=== PATIENT | male | born 1980 | race Caucasian/White ===

== ENCOUNTER 2024-04-09 11:07 | Inpatient (IN) | payer BC, OTHER ==
[~2024-04-09] VITALS: Ht 172.7 cm; Wt 97.1 kg
[2024-04-09] MEDS: ONDANSETRON HCL 4 MG/2 ML VIAL IV ONE (11:30)
[2024-04-09] MEDS: KETOROLAC TROMETH 30 MG/ML 1ML VIAL IV ONE (11:30)
--- NOTE | 2024-04-09 11:50 | ED.PDOC ---
GI ASSESSMENT HPI Comments 44y M who presents to the ED for chief complaint of constipation. Pt states he has been having diffuse abdominal pain radiating to the bilateral flank region since 0830 this AM. Pt states the pain is constant, sharp in nature, rating the pain 10/10, with no associated exacerbating or relieving factors. Pt has associated nausea and some light dysuria but otherwise denies vomiting,diarrhea, fever, cough, chills, hematemesis, headache or dizziness. Pt otherwise denies any other symptoms at this time. Chief Complaint: Constipation Time Seen by MD: 11:42 Reviewed Notes: Nurses Notes, Medications, Allergies Information Source: Patient, Spouse Mode of Arrival: Ambulatory Brought in by: spouse Timing: Hours Duration: Since onset Prehospital treatment: None Quality: Sharp Vomitus: None Stool: Normal Severity: Moderate Recent: None Recent Hx of: None Pain Location: Diffuse Modifying Factors: Exertion Associated sign and symptoms: Nausea, Abdominal Pain Past Medical History PAST MEDICAL HISTORY: High Lipids Surgical History: Denies all surgeries Family History Family History: Family hx of Cancer Social History Smoker: Non-Smoker Alcohol: Denies ETOH Use Drugs: Denies Drug Use Lives In: Home Constitutional: denies: chills, diaphoresis, fatigue, fever, malaise, sweats, weakness, others EENTM: denies: blurred vision, double vision, ear bleeding, ear discharge, ear drainage, ear pain, ear ringing, eye pain, eye redness, hearing loss, mouth pain, mouth swelling, nasal discharge, nose bleeding, nose congestion, nose pain, photophobia, tearing, throat pain, throat swelling, voice changes, others Respiratory: denies: cough, hemoptysis, orthopnea, SOB at rest, shortness of breath, SOB with excertion, stridor, wheezing, others Cardiovascular: denies: chest pain, dizzy spells, diaphoresis, Dyspnea on exertion, edema, irregular heart beat, left arm pain, lightheadedness, palpitations, PND, syncope, others Gastrointestinal: reports: abdominal pain, nausea; denies: abdomen distended, blood streaked bowels, constipated, diarrhea, dysphagia, difficulty swallowing, hematemesis, melena, poor appetite, poor fluid intake, rectal bleeding, rectal pain, vomiting, others Genitourinary: reports: flank pain; denies: burning, dysuria, frequency, hematuria, incontinence, penile discharge, penile sore, pain, testicle pain, testicle swelling, urgency, others Neurological: denies: dizziness, fainting, headache, left sided numbness, left sided weakness, numbness, paresthesia, pre-existing deficit, right sided numbness, right sided weakness, seizure, speech problems, tingling, tremors, weakness, others Musculoskeletal: denies: back pain, gout, joint pain, joint swelling, muscle pain, muscle stiffness, neck pain, others Integumetry: denies: bruises, change in color, change in hair/nails, dryness, laceration, lesions, lumps, rash, wounds, others Allergic/Immunocompromised: denies: Difficulty Healing, Frequent Infections, Hives, Itching, others Hematologic/Lymphatic: denies: anemia, blood clots, easy bleeding, easy bruising, swollen glands, others Endocrine: denies: excessive hunger, excessive sweating, excessive thirst, excessive urination, flushing, intolerance to cold, intolerance to heat, unexplained weight gain, unexplained weight loss, others Psychiatric: denies: anxiety, bipolar disorder, depression, hopeless, panic disorder, schizophrenia, sleepless, suicidal, others All Other Systems: Reviewed and Negative Physical Exam General Appearance: Moderate Distress HEENT: Normal ENT Inspection, Pharynx Normal, TMs Normal Neck: Full Range of Motion, Non-Tender, Normal, Normal Inspection Respiratory: Chest Non-Tender, Lungs Clear, No Accessory Muscle Use, No Respiratory Distress, Normal Breath Sounds Cardiovascular: No Edema, No JVD, No Murmur, No Gallop, Normal Peripheral Pulses, Regular Rate/Rhythm Breast Exam: Deferred Gastrointestinal: Diffuse, No Organomegaly, No Pulsatile Mass, Normal Bowel Sounds, Soft, Tenderness Genitalia: Deferred Pelvic: Deferred Rectal: Deferred Extremities: No calf tenderness, Normal capillary refill, Normal inspection, Normal range of motion, Non-tender, No pedal edema Musculoskeletal : Apperance: Normal Neurologic: Alert, credit professional II-XII nml as Tested, Motor Weakness, Normal Affect, Normal Mood, No Sensory Deficits Cerebellar Function: Normal Reflexes: Normal Skin: Dry, Normal Color, Warm Lymphatic: No Adenopathy Was a procedure done? Was a procedure done?: No GI differential Dx Differential Diagnosis: Constipation, Gastritis/PUD, Gastroenteritis, Pancreatitis, Urolithiasis, Dehydration, Stress Ulcer, Kidney Stone X-Ray, Labs, Meds, VS Vital Signs Date Time Temp Pulse Resp B/P (MAP) Pulse Ox O2 Delivery O2 Flow Rate FiO2 04/09/24 11:54 73 20 100 04/09/24 11:54 98.7 73 20 150/81 (104) 100 98.7 04/09/24 11:16 98.7 82 18 153/80 (104) 98 Lab Test 04/09/24 11:39 04/09/24 11:23 Range/Units White Blood Count 11.9 H 4.4-10.8 10^3/uL Red Blood Count 4.82 4.5-5.90 10^6/uL Hemoglobin 14.8 13.5-17.5 g/dL Hematocrit 42.9 41.0-53.0 % Mean Corpuscular Volume 89.2 80.0-100.0 fL Mean Corpuscular Hemoglobin 30.8 28.0-32.0 pg Mean Corpuscular Hemoglobin Concent 34.6 32.0-36.0 g/dL Red Cell Distribution Width 12.8 11.8-14.3 % Platelet Count 222 140-450 10^3/uL Mean Platelet Volume 8.2 6.9-10.8 fL Neutrophils (%) (Auto) 87.1 H 37.0-80.0 % Lymphocytes (%) (Auto) 7.8 L 10.0-50.0 % Monocytes (%) (Auto) 3.9 0.0-12.0 % Eosinophils (%) (Auto) 0.2 0.0-7.0 % Basophils (%) (Auto) 1.0 0.0-2.0 % Neutrophils # (Auto) 10.4 H 1.6-8.6 10 ^3/uL Lymphocytes # (Auto) 0.9 0.4-5.4 10 ^3/uL Monocytes # (Auto) 0.5 0-1.3 10 ^3/uL Eosinophils # (Auto) 0 0-0.8 10 ^3/uL Basophils # (Auto) 0.1 0-0.2 10 ^3/uL Nucleated Red Blood Cells 0.0 % Sodium Level 144 136-145 mmol/L Potassium Level 3.3 L 3.5-5.1 mmol/L Chloride Level 106 98-107 mmol/L Carbon Dioxide Level 25 20-31 mmol/L Anion Gap 13 5-15 Blood Urea Nitrogen 15 9-23 mg/dL Creatinine 1.14 0.700-1.30 mg/dL Glomerular Filtration Rate Calc 80 >90 mL/min BUN/Creatinine Ratio 13.2 10.0-20.0 Serum Glucose 125 H 74-106 mg/dL Calcium Level 10.5 H 8.7-10.4 mg/dL Total Bilirubin 0.8 0.2-1.0 mg/dL Aspartate Amino Transferase (AST) 25 13-40 U/L Alanine Aminotransferase (ALT) 44 H 7-40 U/L Alkaline Phosphatase 97 46-116 U/L Total Protein 7.2 5.7-8.2 g/dL Albumin 4.7 3.2-4.8 g/dL Lipase 34 12-53 U/L Urine Color Yellow Yellow Urine Clarity Turbid H Clear Urine pH 5.5 5.0-9.0 Urine Specific [place] 1.021 1.001-1.035 Urine Protein 1+ H Negative Urine Ketones Negative Negative Urine Blood 3+ H Negative /uL Urine Nitrite Negative Negative Urine Bilirubin Negative Negative Urine Urobilinogen Normal Negative mg/dL Urine Leukocyte Esterase Negative Negative /uL Urine RBC 1122 0 - 3 /hpf Urine WBC 6 0 - 3 /hpf Urine Squamous Epithelial Cells Few <5 /hpf Urine Bacteria Few H None Seen /hpf Urine Glucose Normal Normal mg/dL Current Medications Medications (Trade) Dose Ordered Sig/Ofelia Route Start Time Stop Time Status Last Admin Ondansetron HCl (Zofran) 4 mg ONCE ONCE IV 04/09/24 11:30 04/09/24 11:31 DC 04/09/24 11:30 Sodium Chloride 500 ml @ 500 mls/hr Q1H ONCE IVB 04/09/24 11:30 04/09/24 12:29 DC 04/09/24 11:52 Ketorolac Tromethamine (Toradol Injection) 30 mg ONCE ONCE IV 04/09/24 11:30 04/09/24 11:31 DC 04/09/24 11:30 PROCEDURE(s): ABPL - CT AB PEL WO CON-NO ORAL OR IV IMPRESSION: 1. Mildly obstructing distal left ureteral calculus measuring up to 2 mm associated with mild left hydronephrosis and hydroureter. Small amount of perinephric fluid on the left. Urology evaluation is recommended. Fat containing periumbilical hernia. At this time, the patient had an IV Hep-Lock The patient was given Toradol 30 mg IV push The patient was given normal saline at a 500 cc bolus The patient was also given Zofran 4 mg IV push for the nausea At this time, the patient is being admitted to the hospitalist. Images Reviewed?: Images reviewed and evaluated by me Time of 1ST Reevaluation: 12:15 Reevaluation 1ST: Unchanged Patient Education/Counseling: Diagnosis, Treatment, Prognosis Family Education/Counseling: Diagnosis, Treatment, Prognosis Additional Information - I reviewed the following notes from patient's past medical encounters: - The following tests were ordered, and results were reviewed by me: CBC, CMP, lipase, UA, CT Abdomen and pelvis, IV fluids, - Additional information was gathered from interviewing the following independent Historian: none - I reviewed and agreed with the following test results read by other provider: radiologist - I discussed treatments and results with medical personnel and: spouse Departure 1 Departure Time of Disposition: 14:22 Impression: Primary Impression: Intractable abdominal pain Additional Impression: Left ureteral stone Disposition: ADMITTED INPATIENT Admit to: Med Surg Condition: Fair Critical Care Note Critical Care Time?: No Stability Stability form required: Yes Unstable for transfer: ED Physician Assesment (Clinical assesment) Heart Score Heart Score: Heart Score Response (Comments) Value History N/A 0 EKG N/A 0 Age N/A 0 Risk Factors N/A 0 Troponin N/A 0 Total 0 I personally scribed for HAYLEY CHACON MD ([email or web address]) on 04/09/24 at 11:50. Electronically submitted by Jen Sandoval ([email or web address]). I personally scribed for HAYLEY CHACON MD ([email or web address]) on 04/09/24 at 12:06. Electronically submitted by Jen LESLIE). HAYLEY CHACON MD Apr 09, 2024 11:50
[2024-04-09] MEDS: SODIUM CHLORIDE 0.9% 500 ML IVB ONE (11:52)
[2024-04-09 11:54] VITALS: BP 150/81; PULSE 73; RESP 20; TEMP 98.7; O2SAT 100
--- NOTE | 2024-04-09 11:55 | DVH ---
Exam: CT CT AB PEL WO CON-NO ORAL OR IV History: pain Comparison Study: None Technique: Multidetector spiral CT of the abdomen and pelvis was performed from lung bases to pubic symphysis. Imaging was performed without IV contrast. Axial, coronal and sagittal multiplanar reform ats were obtained from the axial data set by the technologist. Radiation dose : Abdomen/Pelvis: CTDIvol 14 mGy, DLP 799 mGy*cm. Findings: Evaluation of solid organs is limited due to lack of intravenous contrast use. Lung Bases: No acute or significant lung base finding. Normal heart size. No pleural or pericardial effusion. Liver: The liver is normal in size. No focal lesions. Gallbladder and biliary Tree: Unremarkable Spleen: Unremarkable Pancreas: The pancreas is grossly normal in appearance. Adrenal Glands: Unremarkable Kidneys: Small amount of perinephric fluid on the left. Mild left hydronephrosis and hydroureter. Dis jamar left ureteral calculus measuring up to 2 mm. Right kidney appears unremarkable. Bladder: Grossly unremarkable for degree of distention. Bowel: The stomach is grossly normal in appearance. Small bowel and colon are normal in caliber and d istribution. The appendix is not visualized; however, no secondary findings of acute appendicitis id entified. Ascites: Absent Lymphadenopathy: No mesenteric, retroperitoneal or periportal lymphadenopathy. Abdominal wall and Mesentery: Fat containing periumbilical hernia. Vasculature: The visualized abdominal aorta is normal in size and caliber. Evaluation of abdominal a nd pelvic vessels is limited due to lack of intravenous contrast. Pelvic Organs: Unremarkable Musculoskeletal: Grade 1 retrolisthesis of L2 on L3. IMPRESSION: 1. Mildly obstructing distal left ureteral calculus measuring up to 2 mm associated with mild left hy dronephrosis and hydroureter. Small amount of perinephric fluid on the left. Urology evaluation is re commended. Fat containing periumbilical hernia. Radiation optimization: All CT scans at this facility use at least one of these dose optimization monica hniques: Automated exposure control mA and/or kV adjustment per patient size (includes targeted exams where dose is matched to clinical indication) or iterative reconstruction. HS:Y
[2024-04-09 12:00] LABS: Basophils # (auto) 0.1 10 ^3/uL (0-0.2); Eosinophils # (auto) 0 10 ^3/uL (0-0.8); Eosinophils % (auto) 0.2 % (0.0-7.0); Hematocrit 42.9 % (41.0-53.0); Hemoglobin 14.8 g/dL (13.5-17.5); Lymphocytes # (auto) 0.9 10 ^3/uL (0.4-5.4); Lymphocytes % (auto) 7.8 % (10.0-50.0); Mean Corpuscular Hemoglobin 30.8 pg (28.0-32.0); Mean Corpuscular Hgb Conc. 34.6 g/dL (32.0-36.0); Mean Corpuscular Volume 89.2 fL (80.0-100.0); Monocytes # (auto) 0.5 10 ^3/uL (0-1.3); Monocytes % (auto) 3.9 % (0.0-12.0); Neutrophils # (auto) 10.4 10 ^3/uL (1.6-8.6); Neutrophils % (auto) 87.1 % (37.0-80.0); Platelet Count (auto) 222 10^3/uL (140-450); Red Blood Cells 4.82 10^6/uL (4.5-5.90); Red Cell Distribution Width 12.8 % (11.8-14.3); White Blood Cell 11.9 10^3/uL (4.4-10.8)
[2024-04-09 12:15] LABS: Alkaline Phosphatase 97 U/L (46-116); Anion Gap 13 (5-15); Aspartate Aminotransferase 25 U/L (13-40); Carbon Dioxide 25 mmol/L (20-31); Chloride 106 mmol/L (98-107); Lipase 34 U/L (12-53); Sodium 144 mmol/L (136-145)
[2024-04-09 12:16] LABS: Albumin 4.7 g/dL (3.2-4.8); BUN/Creatinine Ratio 13.2 (10.0-20.0); Bilirubin, Total 0.8 mg/dL (0.2-1.0); Blood Urea Nitrogen 15 mg/dL (9-23); Total Protein 7.2 g/dL (5.7-8.2)
[2024-04-09 12:23] LABS: Alanine Aminotransferase 44 U/L (7-40); Calcium 10.5 mg/dL (8.7-10.4); Glucose 125 mg/dL (74-106); Potassium 3.3 mmol/L (3.5-5.1)
[2024-04-09 13:37] LABS: Urine Bacteria FEW /hpf (None Seen); Urine Blood 3+ /uL (Negative); Urine Clarity Turbid (Clear); Urine Protein, UAD 1+ (Negative); Urine Specific Gravity 1.021 (1.001-1.035); Urine Urobilinogen Normal (Negative); Urine WBC 6 /hpf (0 - 3); Urine pH 5.5 (5.0-9.0)
[2024-04-09 13:47] LABS: Urine Color Yellow (Yellow)
[2024-04-09] MEDS ORDERED: ATOR10TA52 PO (14:29)
[2024-04-09] MEDS ORDERED: MORPHINE SULFATE INJ 2 MG/ml SYRG IV PRN (14:30)
[2024-04-09] MEDS ORDERED: DOCUSATE SOD 100 MG CAP PO PRN (14:30)
[2024-04-09] MEDS ORDERED: POTASSIUM EFFERVESENT TAB 25 MEQ PO ONE (14:30)
[2024-04-09] MEDS ORDERED: ONDANSETRON HCL 4 MG/2 ML VIAL IV PRN (14:30)
[2024-04-09] MEDS ORDERED: ACETAMINOPHEN 325 MG TAB PO PRN (14:30)
[2024-04-09] MEDS ORDERED: HYDROcodone-ACET 5/325MG TAB PO PRN (14:30)
[2024-04-09] MEDS ORDERED: cefTRIAXone 1GM/50ML D5W 50 ML IV ONE (14:30)
[2024-04-09] MEDS ORDERED: SODIUM CHLORIDE 0.9% 1,000 ML IV SCH (14:30)
--- NOTE | 2024-04-09 14:57 | DVHHP2 ---
History of Present Illness Reason for Visit: flank pain History of Present Illness Shaquille Graves is a 44YO M with pmHx of HLD who presents to the ED with bilateral flank pain x 1 day. Patient reports that it happened this morning while he was having a bowel movement he felt sharp pain in his abdomen which radiated to both flanks. He reported the pain as a 10/10 currently pain is 0/10 after the pain medication that was given in ER. Patient also reports that there was some nausea and vomiting x1. He reports that this has not happened before. Patient reports that he is compliant with his medication. Patient denies fever, chills, chest pain, shortness of breath, diarrhea, lightheadedness, and dizz iness. Cardiovascular: hyperipidemia Past Surgical History: None Family History: Cancer (mom breast CA) Smoke: No ALCOHOL: none Drugs: None Lives: with Family Domestic Violence: Neg Review of Systems Constitutional: No: Fever, Chills, Sweats, Weakness, Malaise, Other Eyes: No: Pain, Vision change, Conjunctivae inflammation, Eyelid inflammation, Other, Redness ENT: No: Ear pain, Ear discharge, Nose pain, Nose discharge, Nose congestion, Mouth pain, Mouth swelling, Throat pain, Throat swelling, Other Respiratory: No: Cough, Dry, Shortness of breath, SOB with excertion, Wheezing, Hemoptysis, Pleuritic Pain, Sputum, Wheezing, Other Cardiovascular: No: Chest Pain, Palpitations, Orthopnea, Paroxysmal Noc. Dyspnea, Edema, Lt Headedness, Other Gastrointestinal: Nausea, Vomiting, Abdominal Pain Genitourinary: No Dysuria, No Frequency, No Incontinence, No Hematuria, No Retention, No Other Musculoskeletal: other (flank pain bilateral); No: neck pain, shoulder pain, arm pain, back pain, hand pain, leg pain, foot pain Skin: No: Rash, Lesions, Jaundice, Bruising, Other Neurological: No: Weakness, Numbness, Incoordination, Change in speech, Confusion, Seizures, Other Allergies: Coded Allergies: NO KNOWN ALLERGIES (Unverified , 04/09/24) Exam Vital Signs Vital Signs Date Time Temp Pulse Resp B/P (MAP) Pulse Ox O2 Delivery O2 Flow Rate FiO2 04/09/24 11:54 73 20 100 04/09/24 11:54 98.7 150/81 (104) 98.7 General Appearance: Alert, Oriented X3, Cooperative, No acute distress HEENT: Atraumatic, PERRLA, EOMI, Mucous membr. moist/pink Respiratory: Clear to auscultation, Normal air movement Cardiovascular: Regular rate, Normal S1, Normal S2, No murmurs Abdominal: Normal bowel sounds, Soft, No hepatospenomegaly, No masses Extremities: No clubbing, No cyanosis, No edema, Normal pulses, No tenderness/swelling Skin: No rashes, No breakdown, No significant lesion Neuro: Normal gait, Normal speech, Strength at 5/5 X4 ext, Normal tone, Sensation intact Psych/Mental Status: Mental status NL, Mood NL Labs/Xrays Labs Test 04/09/24 11:39 04/09/24 11:23 Range/Units White Blood Count 11.9 H 4.4-10.8 10^3/uL Red Blood Count 4.82 4.5-5.90 10^6/uL Hemoglobin 14.8 13.5-17.5 g/dL Hematocrit 42.9 41.0-53.0 % Mean Corpuscular Volume 89.2 80.0-100.0 fL Mean Corpuscular Hemoglobin 30.8 28.0-32.0 pg Mean Corpuscular Hemoglobin Concent 34.6 32.0-36.0 g/dL Red Cell Distribution Width 12.8 11.8-14.3 % Platelet Count 222 140-450 10^3/uL Mean Platelet Volume 8.2 6.9-10.8 fL Neutrophils (%) (Auto) 87.1 H 37.0-80.0 % Lymphocytes (%) (Auto) 7.8 L 10.0-50.0 % Monocytes (%) (Auto) 3.9 0.0-12.0 % Eosinophils (%) (Auto) 0.2 0.0-7.0 % Basophils (%) (Auto) 1.0 0.0-2.0 % Neutrophils # (Auto) 10.4 H 1.6-8.6 10 ^3/uL Lymphocytes # (Auto) 0.9 0.4-5.4 10 ^3/uL Monocytes # (Auto) 0.5 0-1.3 10 ^3/uL Eosinophils # (Auto) 0 0-0.8 10 ^3/uL Basophils # (Auto) 0.1 0-0.2 10 ^3/uL Nucleated Red Blood Cells 0.0 % Sodium Level 144 136-145 mmol/L Potassium Level 3.3 L 3.5-5.1 mmol/L Chloride Level 106 98-107 mmol/L Carbon Dioxide Level 25 20-31 mmol/L Anion Gap 13 5-15 Blood Urea Nitrogen 15 9-23 mg/dL Creatinine 1.14 0.700-1.30 mg/dL Glomerular Filtration Rate Calc 80 >90 mL/min BUN/Creatinine Ratio 13.2 10.0-20.0 Serum Glucose 125 H 74-106 mg/dL Calcium Level 10.5 H 8.7-10.4 mg/dL Total Bilirubin 0.8 0.2-1.0 mg/dL Aspartate Amino Transferase (AST) 25 13-40 U/L Alanine Aminotransferase (ALT) 44 H 7-40 U/L Alkaline Phosphatase 97 46-116 U/L Total Protein 7.2 5.7-8.2 g/dL Albumin 4.7 3.2-4.8 g/dL Lipase 34 12-53 U/L Urine Color Yellow Yellow Urine Clarity Turbid H Clear Urine pH 5.5 5.0-9.0 Urine Specific [place] 1.021 1.001-1.035 Urine Protein 1+ H Negative Urine Ketones Negative Negative Urine Blood 3+ H Negative /uL Urine Nitrite Negative Negative Urine Bilirubin Negative Negative Urine Urobilinogen Normal Negative mg/dL Urine Leukocyte Esterase Negative Negative /uL Urine RBC 1122 0 - 3 /hpf Urine WBC 6 0 - 3 /hpf Urine Squamous Epithelial Cells Few <5 /hpf Urine Bacteria Few H None Seen /hpf Urine Glucose Normal Normal mg/dL Exam: CT CT AB PEL WO CON-NO ORAL OR IV History: pain Comparison Study: None Technique: Multidetector spiral CT of the abdomen and pelvis was performed from lung bases to pubic symphysis. Imaging was performed without IV contrast. Axial, coronal and sagittal multiplanar reformats were obtained from the axial data set by the technologist. Radiation dose : Abdomen/Pelvis: CTDIvol 14 mGy, DLP 799 mGy*cm. Findings: Evaluation of solid organs is limited due to lack of intravenous contrast use. Lung Bases: No acute or significant lung base finding. Normal heart size. No pleural or pericardial effusion. Liver: The liver is normal in size. No focal lesions. Gallbladder and biliary Tree: Unremarkable Spleen: Unremarkable Pancreas: The pancreas is grossly normal in appearance. Adrenal Glands: Unremarkable Kidneys: Small amount of perinephric fluid on the left. Mild left hydronephrosis and hydroureter. Distal left ureteral calculus measuring up to 2 mm. Right kidney appears unremarkable. Bladder: Grossly unremarkable for degree of distention. Bowel: The stomach is grossly normal in appearance. Small bowel and colon are normal in caliber and distribution. The appendix is not visualized; however, no secondary findings of acute appendicitis identified. Ascites: Absent Lymphadenopathy: No mesenteric, retroperitoneal or periportal lymphadenopathy. Abdominal wall and Mesentery: Fat containing periumbilical hernia. Vasculature: The visualized abdominal aorta is normal in size and caliber. Evaluation of abdominal and pelvic vessels is limited due to lack of intravenous contrast. Pelvic Organs: Unremarkable Musculoskeletal: Grade 1 retrolisthesis of L2 on L3. IMPRESSION: 1. Mildly obstructing distal left ureteral calculus measuring up to 2 mm associated with mild left hydronephrosis and hydroureter. Small amount of perinephric fluid on the left. Urology evaluation is recommended. Fat containing periumbilical hernia. Radiation optimization: All CT scans at this facility use at least one of these dose optimization techniques: Automated exposure control mA and/or kV adjustment per patient size (includes targeted exams where dose is matched to clinical indication) or iterative reconstruction. Assessment/Plan Assessment/Plan Assessment/Plan: Obstructing distal left ureteral calculus Left hydronephrosis and hydroureter Periumbilical hernia Urology cx labs ct a/p ua labs am lipase pain management antiemetics strain urine Leukocytosis IV Abx am labs Hypokalemia replete lytes Obesity lifestyle modifications, diet and exercise HLD continue home medications - atorvastatin FEN/PPX diet ivf ambulating not indicated for dvt ppx PUD ppx not indicated no hx of GERD Admit to med surg Discussed plan of care with patient and nurse Home medications reconciled Plan discussed with: Patient My Orders Orders - LEISA TORRES Procedure Category Date Status Time * Urology Consult CONS 04/09/24 Transmitted 13:50 Date of Service: Apr 09, 2024 Billing Provider: LEISA TORRES Common Visit Codes: [id number] INP/OBS CARE (MOD) LEISA TORRES Apr 09, 2024 14:57
--- NOTE | 2024-04-09 15:29 | DVHINCON2 ---
Date of service: Apr 09, 2024 Referring Physician ER Reason for Consultation STAT [facility] CONSULT Dx: "Mildy obstructing mass distal urethral calculus" History of Present Illness 44YO M with pmHx of HLD who presents to the ED with bilateral flank pain x 1 day. Patient reports that it happened this morning while he was having a bowel movement he felt sharp pain in his abdomen which radiated to both flanks. He reported the pain as a 10/10 currently pain is 0/10 after the pain medication that was given in ER. Patient also reports that there was some nausea and vomiting x1. He reports that this has not happened before. Patient reports that he is compliant with his medication. Patient denies fever, chills, chest pain, shortness of breath, diarrhea, lightheadedness, and dizziness. Past Medical History hyperipidemia Past Surgical History NA Allergies: Coded Allergies: NO KNOWN ALLERGIES (Unverified , 04/09/24) Home Meds Reported Medications Atorvastatin Calcium (ATORVASTATIN CALCIUM) 10 Mg Tab, 1 TAB PO 04/09/24 Current Medications Current Medications Medications (Trade) Dose Ordered Sig/Ofelia Route PRN Reason Start Time Stop Time Status Last Admin Sodium Chloride 1,000 ml @ 60 mls/hr [id number] IV 04/09/24 14:30 Acetaminophen/ Hydrocodone Bitart ([place] 5/325MG Tab) 1 tab Q4HP PRN PO MODERATE PAIN (4-6 PAIN SCALE) 04/09/24 14:30 Ondansetron HCl (Zofran) 4 mg Q4HP PRN IV NAUSEA / VOMITING 04/09/24 14:30 Docusate Sodium (Colace Capsule) 100 mg BIDPRN PRN PO FOR CONSTIPATION 04/09/24 14:30 Acetaminophen (Tylenol Tablet) 650 mg Q6HP PRN PO PAIN SCALE 1-3 OR TEMP>100.4 04/09/24 14:30 Morphine Sulfate 2 mg Q4HPRN PRN IV SEVERE PAIN (7-10 PAIN SCALE) 04/09/24 14:30 Ceftriaxone Sodium 50 ml @ 100 mls/hr DAILY@09 IV 04/10/24 09:00 Review of Systems Constitutional: No: Fever, Chills, Sweats, Weakness, Malaise, Other Eyes: No: Pain, Vision change, Conjunctivae inflammation, Eyelid inflammation, Other, Redness ENT: No: Ear pain, Ear discharge, Nose pain, Nose discharge, Nose congestion, Mouth pain, Mouth swelling, Throat pain, Throat swelling, Other Respiratory: No: Cough, Dry, Shortness of breath, SOB with excertion, Wheezing, Hemoptysis, Pleuritic Pain, Sputum, Wheezing, Other Cardiovascular: No: Chest Pain, Palpitations, Orthopnea, Paroxysmal Noc. Dyspnea, Edema, Lt Headedness, Other Gastrointestinal: Nausea, Vomiting, Abdominal Pain Genitourinary: No Dysuria, No Frequency, No Incontinence, No Hematuria, No Retention, No Other Musculoskeletal: other (flank pain bilateral); No: neck pain, shoulder pain, arm pain, back pain, hand pain, leg pain, foot pain Skin: No: Rash, Lesions, Jaundice, Bruising, Other Neurological: No: Weakness, Numbness, Incoordination, Change in speech, Confusion, Seizures, Other Vital Signs Vital Signs Date Time Temp Pulse Resp B/P (MAP) Pulse Ox O2 Delivery O2 Flow Rate FiO2 04/09/24 11:54 73 20 100 04/09/24 11:54 98.7 150/81 (104) 98.7 Physical Exam Vital Signs Date Time Temp Pulse Resp B/P (MAP) Pulse Ox O2 Delivery O2 Flow Rate FiO2 04/09/24 11:54 73 20 100 04/09/24 11:54 98.7 150/81 (104) 98.7 General Appearance: Alert, Oriented X3, Cooperative, No acute distress HEENT: Atraumatic, PERRLA, EOMI, Mucous membr. moist/pink Respiratory: Clear to auscultation, Normal air movement Cardiovascular: Regular rate, Normal S1, Normal S2, No murmurs Abdominal: Normal bowel sounds, Soft, No hepatospenomegaly, No masses Extremities: No clubbing, No cyanosis, No edema, Normal pulses, No tenderness/swelling Skin: No rashes, No breakdown, No significant lesion Neuro: Normal gait, Normal speech, Strength at 5/5 X4 ext, Normal tone, Sensation intact Psych/Mental Status: Mental status NL, Mood NL Labs/Diagnostic Data Labs Test 04/09/24 11:39 04/09/24 11:23 Range/Units White Blood Count 11.9 H 4.4-10.8 10^3/uL Red Blood Count 4.82 4.5-5.90 10^6/uL Hemoglobin 14.8 13.5-17.5 g/dL Hematocrit 42.9 41.0-53.0 % Mean Corpuscular Volume 89.2 80.0-100.0 fL Mean Corpuscular Hemoglobin 30.8 28.0-32.0 pg Mean Corpuscular Hemoglobin Concent 34.6 32.0-36.0 g/dL Red Cell Distribution Width 12.8 11.8-14.3 % Platelet Count 222 140-450 10^3/uL Mean Platelet Volume 8.2 6.9-10.8 fL Neutrophils (%) (Auto) 87.1 H 37.0-80.0 % Lymphocytes (%) (Auto) 7.8 L 10.0-50.0 % Monocytes (%) (Auto) 3.9 0.0-12.0 % Eosinophils (%) (Auto) 0.2 0.0-7.0 % Basophils (%) (Auto) 1.0 0.0-2.0 % Neutrophils # (Auto) 10.4 H 1.6-8.6 10 ^3/uL Lymphocytes # (Auto) 0.9 0.4-5.4 10 ^3/uL Monocytes # (Auto) 0.5 0-1.3 10 ^3/uL Eosinophils # (Auto) 0 0-0.8 10 ^3/uL Basophils # (Auto) 0.1 0-0.2 10 ^3/uL Nucleated Red Blood Cells 0.0 % Sodium Level 144 136-145 mmol/L Potassium Level 3.3 L 3.5-5.1 mmol/L Chloride Level 106 98-107 mmol/L Carbon Dioxide Level 25 20-31 mmol/L Anion Gap 13 5-15 Blood Urea Nitrogen 15 9-23 mg/dL Creatinine 1.14 0.700-1.30 mg/dL Glomerular Filtration Rate Calc 80 >90 mL/min BUN/Creatinine Ratio 13.2 10.0-20.0 Serum Glucose 125 H 74-106 mg/dL Calcium Level 10.5 H 8.7-10.4 mg/dL Total Bilirubin 0.8 0.2-1.0 mg/dL Aspartate Amino Transferase (AST) 25 13-40 U/L Alanine Aminotransferase (ALT) 44 H 7-40 U/L Alkaline Phosphatase 97 46-116 U/L Total Protein 7.2 5.7-8.2 g/dL Albumin 4.7 3.2-4.8 g/dL Lipase 34 12-53 U/L Urine Color Yellow Yellow Urine Clarity Turbid H Clear Urine pH 5.5 5.0-9.0 Urine Specific [place] 1.021 1.001-1.035 Urine Protein 1+ H Negative Urine Ketones Negative Negative Urine Blood 3+ H Negative /uL Urine Nitrite Negative Negative Urine Bilirubin Negative Negative Urine Urobilinogen Normal Negative mg/dL Urine Leukocyte Esterase Negative Negative /uL Urine RBC 1122 0 - 3 /hpf Urine WBC 6 0 - 3 /hpf Urine Squamous Epithelial Cells Few <5 /hpf Urine Bacteria Few H None Seen /hpf Urine Glucose Normal Normal mg/dL PATIENT: ANGELA CHUA ACCT: [id number] UNIT: [id number] : 1980 LOC: ER ROOM / BED: / AGE / SEX: 44 / M ADM STATUS: REG ER SERVICE 1123 ORDERING PHYSICIAN: HAYLEY CHACON MD PROCEDURE(s): ABPL - CT AB PEL WO CON-NO ORAL OR IV REASON: pain ORDER NUMBER(s): [id number], ACCESSION NUMBER(s): [id number] Exam: CT CT AB PEL WO CON-NO ORAL OR IV History: pain Comparison Study: None Technique: Multidetector spiral CT of the abdomen and pelvis was performed from lung bases to pubic symphysis. Imaging was performed without IV contrast. Axial, coronal and sagittal multiplanar reformats were obtained from the axial data set by the technologist. Radiation dose : Abdomen/Pelvis: CTDIvol 14 mGy, DLP 799 mGy*cm. Findings: Evaluation of solid organs is limited due to lack of intravenous contrast use. Lung Bases: No acute or significant lung base finding. Normal heart size. No pleural or pericardial effusion. Liver: The liver is normal in size. No focal lesions. Gallbladder and biliary Tree: Unremarkable Spleen: Unremarkable Pancreas: The pancreas is grossly normal in appearance. Adrenal Glands: Unremarkable Kidneys: Small amount of perinephric fluid on the left. Mild left hydronephrosis and hydroureter. Distal left ureteral calculus measuring up to 2 mm. Right kidney appears unremarkable. Bladder: Grossly unremarkable for degree of distention. Bowel: The stomach is grossly normal in appearance. Small bowel and colon are normal in caliber and distribution. The appendix is not visualized; however, no secondary findings of acute appendicitis identified. Ascites: Absent Lymphadenopathy: No mesenteric, retroperitoneal or periportal lymphadenopathy. Abdominal wall and Mesentery: Fat containing periumbilical hernia. Vasculature: The visualized abdominal aorta is normal in size and caliber. Evaluation of abdominal and pelvic vessels is limited due to lack of intravenous contrast. Pelvic Organs: Unremarkable Musculoskeletal: Grade 1 retrolisthesis of L2 on L3. IMPRESSION: 1. Mildly obstructing distal left ureteral calculus measuring up to 2 mm associated with mild left hydronephrosis and hydroureter. Small amount of perinephric fluid on the left. Urology evaluation is recommended. Fat containing periumbilical hernia. Radiation optimization: All CT scans at this facility use at least one of these dose optimization techniques: Automated exposure control mA and/or kV adjustment per patient size (includes targeted exams where dose is matched to clinical indication) or iterative reconstruction. HS:Y ATED BY: ANTHONY TREJO MD DICTATED DATE/TIME: 04/09/24 1152 SIGNED BY: ANTHONY TREJO MD SIGNED DATE/TIME: 04/09/24 115 CC: Assessment Umbilical hernia 2 mm right distal ureteral stone Mild hydronephrosis, right Plan/Recommendation Expulsive measures Patient was informed that he would most likely passed the 2 mm stone on his own follow up in clinic as outpatient Plan discussed with: Patient, Other RADHA MENEZES MD Apr 09, 2024 15:29
[2024-04-09] MEDS ORDERED: MANNITOL FTV 25% 12.5 GM/50 ML 50 ML IV ONE (15:45)
[2024-04-10] MEDS ORDERED: cefTRIAXone 1GM/50ML D5W 50 ML IV SCH (09:00)
== END 2024-04-09 16:36 | disposition left against medical advice (07) | DRG 694 ==
LOC: ER 11:07 → OVERFLOW 14:21
DX: N13.2 Hydronephrosis with renal and ureteral calculous obstruction (principal); K42.9 Umbilical hernia without obstruction or gangrene; E78.5 Hyperlipidemia, unspecified; Z53.29 Procedure and treatment not carried out because of patient's decision for other reasons; Z80.3 Family history of malignant neoplasm of breast
CPT/HCPCS: 36415; 74176; 80053; 81001; 83690; 85025; G0378; J1885; J2405